=== PATIENT | female | born 1965 | race Caucasian/White ===

== ENCOUNTER 2016-11-02 12:30 | Day surgery (SDC) | payer OTHER ==
[~2016-11-02] VITALS: Ht 147.3 cm; Wt 74.3 kg
[2016-11-02 13:56] VITALS: Ht 147.3 cm; Wt 74.3 kg
[2016-11-02] MEDS ORDERED: LIDOCAINE 4% SOLUTION 50 ML BTL ONE (14:05)
[2016-11-02] MEDS ORDERED: MIDAZOLAM 1 MG/ML 2 ML INJ ONE (14:41)
[2016-11-02] MEDS ORDERED: FENTAnyl 50 MCG/ML VIAL ONE (14:41)
[2016-11-02 14:48] VITALS: BP 132/84; PULSE 66; RESP 15
--- NOTE | 2016-11-03 08:08 | GILP ---
DATE OF PROCEDURE: PREOPERATIVE DIAGNOSIS: Abdominal pain continues. PROCEDURE DONE: Esophagogastroduodenoscopy and biopsy. POSTOPERATIVE DIAGNOSES: 1. Small hiatus hernia. 2. Mild gastritis in the fundus. 3. Otherwise normal upper endoscopy. DESCRIPTION OF PROCEDURE: The patient was put in left lateral decubitus after obtaining informed co nsent, was sedated, monitored on oximetry, EKG, blood pressure. Posterior pharynx anesthetized with 4% Xylocaine gargle. She received 2 mg IV Versed and 50 mcg of fentanyl IV. Very carefully advanced Olympus video upper endoscope into the esophagus, stomach, and duodenum. Es ophagus in its entire length actually normal except for a 2 cm, small sliding hiatus hernia. This w as also confirmed by retroflexion in the fundus. Mild gastritis noted in the fundus and body, so bi opsies were done randomly. Antrum normal. Pyloric channel normal. Duodenal bulb and first and sec ond part of the duodenum normal. Upon removal of the scope, the patient had no complication. Plan will be to await for biopsy report, follow up as outpatient. Dictated By: AKANKSHA CERVANTES Conf#: [id number] DID#: [id number] CC: ARELI BLEVINS MD;*End*
== END 2016-11-02 15:26 | disposition home or self-care (01) ==
LOC: GIL 12:30
PROVIDERS: ATTEND Internal Medicine
DX: R10.13 Epigastric pain (principal); R11.2 Nausea with vomiting, unspecified; R13.10 Dysphagia, unspecified; E78.5 Hyperlipidemia, unspecified; E66.9 Obesity, unspecified; Z68.34 Body mass index [BMI] 34.0-34.9, adult; K44.9 Diaphragmatic hernia without obstruction or gangrene; K29.50 Unspecified chronic gastritis without bleeding
CPT/HCPCS: 43239; 88305; 88312; J2250; J3010; Z7610

== ENCOUNTER 2018-05-17 17:55 | Inpatient (IN) | END 2018-05-22 17:40 | disposition home or self-care (01) | DRG 872 ==

== ENCOUNTER 2019-02-21 09:12 | Emergency (ER) | payer OTHER ==
[~2019-02-21] VITALS: Ht 144.8 cm; Wt 75.5 kg
[~2019-02-21 09:12] MED LIST: LEVO500T48 PO
[2019-02-21 09:31] VITALS: Ht 144.8 cm; Wt 75.5 kg
[2019-02-21] MEDS ORDERED: SOD CHLORIDE 0.9% 1,000 ML IV STA (09:46)
[2019-02-21] MEDS ORDERED: ONDANSETRON 4 MG INJ IV STA (09:46)
--- NOTE | 2019-02-21 10:25 | ERD ---
ER Documentation Chief Complaint Chief Complaint DIZZINESS , LOSES HER BALANCE, HEADACHE, VOMITTING X 2WEEKS GOT WORSE HPI This is a 53-year-old woman complaining of dizziness x2 weeks, and headache similar to multiple previous episodes, she does have a history of migraines and states today's headache feels like prior migraines. She has had some nausea and vomiting as well no diarrhea, no chest pain, no fevers or chills, no weight loss, no slurred speech, no weakness to her arms or legs. ROS All systems reviewed and are negative except as per history of present illness. Medications Home Meds Active Scripts Meclizine Hcl* (Antivert*) 12.5 Mg Tab, 25 MG PO Q6H PRN for DIZZINESS, #20 TAB Prov:TOMAS MCCALL MD 02/21/19 Naproxen* (Naprosyn*) 500 Mg Tablet, 500 MG PO BID PRN for PAIN AND/OR INFLAMMATION, #30 TAB Prov:TOMAS MCCALL MD 02/21/19 Discontinued Scripts Levofloxacin* (Levaquin*) 500 Mg Tablet, 500 MG PO DAILY for 7 Days, TAB Prov:FATOUMATA MARCH MD 05/22/18 Allergies Allergies: Coded Allergies: No Known Allergy (Unverified , 02/21/19) PMhx/Soc Migraine headaches History of Surgery: Yes (liver mass removal) Anesthesia Reaction: No Hx Neurological Disorder: No Hx Respiratory Disorders: No Hx Cardiac Disorders: No Hx Psychiatric Problems: No Hx Miscellaneous Medical Probl: No Hx Alcohol Use: No Hx Substance Use: No Hx Tobacco Use: No Smoking Status: Never smoker Physical Exam Vitals Vital Signs Date Temp Pulse Resp B/P (MAP) Pulse Ox O2 O2 Flow FiO2 Time Delivery Rate 02/21/19 98.4 62 16 141/84 99 Room Air 11:30 (103) 02/21/19 60 14 165/95 100 Room Air 10:25 (118) 02/21/19 98.7 66 19 185/106 99 Room Air 10:17 (132) 02/21/19 98.4 66 19 185/106 99 09:31 (132) Physical Exam Head: Atraumatic Eyes: Normal Conjunctiva ENT: Normal External Ears, Nose and Mouth. Neck: Full range of motion. No meningismus. Resp: Clear to auscultation bilaterally Cardio: Regular rate and rhythm, no murmurs Abd: Soft, non tender, non distended. Skin: No petechiae or rashes Back: No midline or flank tenderness Ext: No cyanosis, or edema Neur: Awake and alert x3, no focal deficits or facial asymmetry, pupils equal round reactive to light, gait normal Psych: Normal Mood and Affect Result Diagram: 02/21/19 1005 02/21/19 1005 Results 24 hrs Laboratory Tests Test 02/21/19 10:05 02/21/19 10:10 White Blood Count 9.4 10^3/ul Red Blood Count 4.57 10^6/ul Hemoglobin 13.9 g/dl Hematocrit 42.7 % Mean Corpuscular Volume 93.4 fl Mean Corpuscular Hemoglobin 30.4 pg Mean Corpuscular Hemoglobin Concent 32.6 g/dl Red Cell Distribution Width 12.6 % Platelet Count 288 10^3/UL Mean Platelet Volume 9.4 fl Immature Granulocytes % 0.200 % Neutrophils % 49.4 % Lymphocytes % 19.7 % Monocytes % 6.2 % Eosinophils % 23.9 % Basophils % 0.6 % Nucleated Red Blood Cells % 0.0 /100WBC Immature Granulocytes # 0.020 10^3/ul Neutrophils # 4.7 10^3/ul Lymphocytes # 1.9 10^3/ul Monocytes # 0.6 10^3/ul Eosinophils # 2.3 10^3/ul Basophils # 0.1 10^3/ul Nucleated Red Blood Cells # 0.0 10^3/ul Sodium Level 142 mmol/L Potassium Level 4.0 mmol/L Chloride Level 106 mmol/L Carbon Dioxide Level 29 mmol/L Anion Gap 7 Blood Urea Nitrogen 17 mg/dl Creatinine 0.50 mg/dl Est Glomerular Filtrat Rate mL/min > 60 mL/min Glucose Level 136 mg/dl Calcium Level 9.5 mg/dl Total Bilirubin 0.4 mg/dl Direct Bilirubin 0.00 mg/dl Indirect Bilirubin 0.4 mg/dl Aspartate Amino Transf (AST/SGOT) 21 IU/L Alanine Aminotransferase (ALT/SGPT) 24 IU/L Alkaline Phosphatase 110 IU/L Troponin I < 0.012 ng/ml Total Protein 7.9 g/dl Albumin 4.4 g/dl Globulin 3.50 g/dl Albumin/Globulin Ratio 1.25 Lipase 54 U/L Urine Color YELLOW Urine Clarity CLEAR Urine pH 7.0 Urine Specific [place] 1.013 Urine Ketones NEGATIVE mg/dL Urine Nitrite NEGATIVE mg/dL Urine Bilirubin NEGATIVE mg/dL Urine Urobilinogen NEGATIVE mg/dL Urine Leukocyte Esterase NEGATIVE Luis M/ul Urine Microscopic RBC 2 /HPF Urine Microscopic WBC 1 /HPF Urine Squamous Epithelial Cells FEW /HPF Urine Bacteria FEW /HPF Urine Hemoglobin 1+ mg/dL Urine Glucose NEGATIVE mg/dL Urine Total Protein NEGATIVE mg/dl Current Medications Medications Dose Sig/Victoria Start Time Status Last (Trade) Ordered Route PRN Stop Time Admin Dose Reason Admin Sodium 1,000 ml @ Q1H STAT 02/21/19 DC 02/21/19 Chloride 1,000 mls/hr IV 09:46 10:12 02/21/19 10:45 Ondansetron 4 mg ONCE STAT 02/21/19 DC 02/21/19 HCl (Zofran IV 09:46 10:13 Inj) 02/21/19 09:48 Ketorolac 15 mg ONCE STAT 02/21/19 DC 02/21/19 Tromethamine IV 10:37 10:48 (Toradol) 02/21/19 10:38 Ondansetron 4 mg ONCE STAT 02/21/19 DC 02/21/19 HCl (Zofran ODT 12:07 12:21 Odt) 02/21/19 12:08 Procedures/MDM IV line was established patient was placed on office system analyst rhythm strip revealed a sinus rhythm at about 60 bpm with upright P and T waves. Patient was afebrile EKG performed, read by me: Sinus bradycardia 58 bpm, normal sinus rhythm, normal axis, no acute ST segment changes, narrow QRS complex, with good R-wave progression in precordial leads. I administered 1 L normal saline IV, Toradol 15 mg IV, Zofran 4 mg IV CBC and electrolytes are normal, liver function tests normal, troponin negative, urinalysis negative for infection Differential diagnoses considered, included but not limited to acute coronary syndrome, pulmonary embolism, aortic dissection, abdominal aortic aneurysm, sepsis, stroke, meningitis, encephalitis, pneumonia, appendicitis, cholecystitis, bowel obstruction, pyelonephritis, nephrolithiasis, cystitis, as well as metabolic, hematologic, and electrolyte abnormalities. As well as abscess, cellulitis, fractures, and dislocations. Patient feels much better at this time, and vital signs are normal, symptoms have improved. I did give strict instructions to return to the ED if symptoms continue or worsen, patient will otherwise follow-up with primary care physician. Patient understood instructions and agreed to plan. Disclaimer: Inadvertent spelling and grammatical errors are likely due to EHR/dictation software use and do not reflect on the overall quality of patient care. Also, please note that the electronic time recorded on this note does not necessarily reflect the actual time of the patient encounter. Departure Diagnosis: Primary Impression: Dizziness Additional Impression: Migraine headache Migraine type: unspecified Status migrainosus presence: without status migrainosus Intractability: not intractable Qualified Codes: G43.909 - Migraine, unspecified, not intractable, without status migrainosus Condition: TOMAS Thompson MD February 21, 2019 10:25
[2019-02-21] MEDS ORDERED: KETOROLAC 15 MG INJ IV STA (10:37)
[2019-02-21] MEDS ORDERED: NAPR-985 PO (11:24)
[2019-02-21] MEDS ORDERED: MECL12.574 PO (11:24)
[2019-02-21 11:30] VITALS: BP 141/84; PULSE 62; RESP 16
[2019-02-21] MEDS ORDERED: ONDANSETRON (ODT) 4 MG TAB ODT STA (12:07)
== END 2019-02-21 11:50 | disposition home or self-care (01) ==
LOC: E/R 09:12
DX: G43.909 Migraine, unspecified, not intractable, without status migrainosus (principal); R40.2142 Coma scale, eyes open, spontaneous, at arrival to emergency department; R40.2252 Coma scale, best verbal response, oriented, at arrival to emergency department; R40.2362 Coma scale, best motor response, obeys commands, at arrival to emergency department
CPT/HCPCS: 36415; 80053; 81001; 83690; 84484; 85025; 93005; 96361; 96374; 96375; J1885; J2405; J7030; Z7502; Z7610

== ENCOUNTER 2019-05-10 10:12 | Emergency (ER) | payer OTHER ==
[~2019-05-10] VITALS: Wt 64.0 kg
[~2019-05-10 10:12] MED LIST changes: -LEVO500T48 PO; +MECL12.574 PO; +NAPR-985 PO; +ONDA4TAB14 PO; +PANT40TA3 PO
--- NOTE | 2019-05-10 12:09 | ERD ---
ER Documentation Chief Complaint Chief Complaint AP WITH VOMITING, DIZZINESS X 3 DAYS HPI 53-year-old female resents the emergency department from her primary care doctor's office for evaluation of abdominal pain. Patient states over the last 3 to 4 days, she is had a nonspecific mostly left lower quadrant abdominal pain. This is been associated with a nonspecific, nonvertiginous dizziness. She reports no fevers or chills, urinary symptoms. She reports no diarrhea or vomiting. Her pain is nonspecific and poorly localized and described as minimal to moderate. Currently she states she does not require pain medication. ROS All systems reviewed and are negative except as per history of present illness. Medications Home Meds Discontinued Scripts Meclizine Hcl* (Antivert*) 12.5 Mg Tab, 25 MG PO Q6H PRN for DIZZINESS, #20 TAB Prov:TOMAS MCCALL MD 02/21/19 Naproxen* (Naprosyn*) 500 Mg Tablet, 500 MG PO BID PRN for PAIN AND/OR INFLAMMATION, #30 TAB Prov:TOMAS MCCALL MD 02/21/19 Allergies Allergies: Coded Allergies: No Known Allergy (Unverified , 05/10/19) PMhx/Soc History of Surgery: Yes (liver mass removal) Anesthesia Reaction: No Hx Neurological Disorder: No Hx Respiratory Disorders: No Hx Cardiac Disorders: No Hx Psychiatric Problems: No Hx Miscellaneous Medical Probl: No Hx Alcohol Use: No Hx Substance Use: No Hx Tobacco Use: No Smoking Status: Never smoker FmHx Noncontributory for chief complaint Physical Exam Vitals Vital Signs Date Temp Pulse Resp B/P (MAP) Pulse Ox O2 O2 Flow FiO2 Time Delivery Rate 05/10/19 97.4 65 18 140/86 99 10:16 (104) Physical Exam GENERAL: The patient is well developed and appropriate for usual state of health in no apparent distress HEENT: Pupils equal, round, and reactive to light. EOMI. There is no scleral icterus. NECK: C-spine is soft and supple, there is no meningismus. There is no cervical lymphadenopathy. LUNGS: Clear to auscultation bilaterally. There are no rales, wheezes or rhonchi. HEART: Regular rate and rhythm, no murmurs, clicks, rubs or gallops. ABDOMEN: Soft, non-tender, non-distended. There are bowel sounds in all four quadrants. No rebound or guarding. No CVA tenderness EXTREMITIES: There is no peripheral cyanosis or edema. No focal swelling or erythema. NEURO: The patient moves all four extremities with 5/5 strength. Cranial nerves II - XII are intact. Normal gait. Alert and oriented SKIN: There is no apparent rash or petechiae. HEME/LYMPHATIC: There is no evidence of excessive bruising or lymphedema. PSYCHIATRIC: The patient does not appear anxious or depressed. Result Diagram: 05/10/19 1059 05/10/19 1059 Results 24 hrs Laboratory Tests Test 05/10/19 10:59 White Blood Count 9.6 10^3/ul Red Blood Count 4.72 10^6/ul Hemoglobin 14.3 g/dl Hematocrit 44.2 % Mean Corpuscular Volume 93.6 fl Mean Corpuscular Hemoglobin 30.3 pg Mean Corpuscular Hemoglobin Concent 32.4 g/dl Red Cell Distribution Width 12.5 % Platelet Count 325 10^3/UL Mean Platelet Volume 9.1 fl Immature Granulocytes % 0.400 % Neutrophils % 68.8 % Lymphocytes % 20.7 % Monocytes % 3.9 % Eosinophils % 5.7 % Basophils % 0.5 % Nucleated Red Blood Cells % 0.0 /100WBC Immature Granulocytes # 0.040 10^3/ul Neutrophils # 6.6 10^3/ul Lymphocytes # 2.0 10^3/ul Monocytes # 0.4 10^3/ul Eosinophils # 0.6 10^3/ul Basophils # 0.1 10^3/ul Nucleated Red Blood Cells # 0.0 10^3/ul Urine Color YELLOW Urine Clarity SLIGHTLY CLOUDY Urine pH 7.0 Urine Specific [place] 1.019 Urine Ketones NEGATIVE mg/dL Urine Nitrite NEGATIVE mg/dL Urine Bilirubin NEGATIVE mg/dL Urine Urobilinogen NEGATIVE mg/dL Urine Leukocyte Esterase TRACE Luis M/ul Urine Microscopic RBC 4 /HPF Urine Microscopic WBC 8 /HPF Urine Squamous Epithelial Cells FEW /HPF Urine Bacteria FEW /HPF Urine Mucus FEW /HPF Urine Hemoglobin NEGATIVE mg/dL Urine Glucose NEGATIVE mg/dL Urine Total Protein NEGATIVE mg/dl Sodium Level 143 mmol/L Potassium Level 4.1 mmol/L Chloride Level 104 mmol/L Carbon Dioxide Level 30 mmol/L Anion Gap 9 Blood Urea Nitrogen 17 mg/dl Creatinine 0.56 mg/dl Est Glomerular Filtrat Rate mL/min > 60 mL/min Glucose Level 137 mg/dl Calcium Level 9.6 mg/dl Total Bilirubin 0.5 mg/dl Direct Bilirubin 0.00 mg/dl Indirect Bilirubin 0.5 mg/dl Aspartate Amino Transf (AST/SGOT) 25 IU/L Alanine Aminotransferase (ALT/SGPT) 23 IU/L Alkaline Phosphatase 98 IU/L Total Protein 8.9 g/dl Albumin 4.7 g/dl Globulin 4.20 g/dl Albumin/Globulin Ratio 1.11 Lipase 40 U/L Procedures/MDM Patient was taken to a room, seen and evaluated. Comfort measures were initiated. Diagnostic tests were ordered and reviewed. 3 LEAD RHYTHM STRIP: Normal sinus rhythm without ectopy EK lead EKG reviewed by myself: Normal Sinus Rhythm Normal [place] and intervals No ST elevation, depression, or T wave inversion Impression: Normal EKG RADIOLOGY: Reviewed with the radiologist REEVALUATION: 1200: Initial diagnostic tests were appreciated. So examinations of the abdomen remained benign. Patient seemed appropriate for discharge. MEDICAL DECISION MAKING: Patient presents with abdominal pain of uncertain etiology. Differential diagnosis considered includes appendicitis, diverticulitis, cholecystitis and other intra-abdominal medical and surgical concerns. I have reviewed the patients lab studies and imaging as well as multiple examinations of the abdomen. At this time, patient shows no evidence of significant high risk intra-abdominal concerns including no evidence of diverticulitis, appendicitis or high risk infections. Her pain is seems to be well-controlled. She appears to be clinically comfortable and appropriate for discharge. Departure Diagnosis: Primary Impression: Abdominal pain Condition: Stable Patient Instructions: Abdominal Pain Referrals: ARELI BLEVINS MD (PCP) Additional Instructions: Consulte a garrido mdico para el seguimiento segn lo discutido. Lleve martin copia de los resultados de garrido prueba, si corresponde, a esta visita de seguimiento. Consulte a garrido mdico o regrese aqu si trevor sntomas no mejoran kameron se esperaba. En cualquier momento, regrese al departamento de emergencias por cualquier cambio o empeoramiento en trevor sntomas. BRIDGER RODRIGUEZ May 10, 2019 12:09
[2019-05-10 12:22] VITALS: BP 144/99; PULSE 74; RESP 18
== END 2019-05-10 12:22 | disposition home or self-care (01) ==
LOC: E/R 10:12
DX: R10.32 Left lower quadrant pain (principal)
CPT/HCPCS: 36415; 74176; 80053; 81001; 83690; 85025; Z7502